=== PATIENT | male | born 1970 | race African-American/Black ===

== ENCOUNTER 2023-04-17 14:14 | Emergency (ER) | payer MEDICAID, OTHER ==
[~2023-04-17] VITALS: Ht 172.7 cm; Wt 136.0 kg
[2023-04-17 14:33] VITALS: BP 180/105; TEMP 98.6; O2SAT 98
[2023-04-17 14:45] VITALS: PULSE 89; RESP 18
[2023-04-17] MEDS ORDERED: CEPH500C2 MT (14:49)
== END 2023-04-17 18:10 | disposition home or self-care (01) ==
LOC: ER 14:14
DX: L97.929 Non-pressure chronic ulcer of unspecified part of left lower leg with unspecified severity (principal); E11.9 Type 2 diabetes mellitus without complications; I25.2 Old myocardial infarction; I10 Essential (primary) hypertension; Z98.890 Other specified postprocedural states
CPT/HCPCS: 99283